=== PATIENT | female | born 1945 | race Caucasian/White ===

== ENCOUNTER 2024-02-26 12:49 | Outpatient (OUT) | payer MEDICARE, SELFPAY ==
--- NOTE | 2024-02-26 | XR_ITS ---
The [address] [address] Patient Name: REHAN GREGORY MRN: [id number] date: 1945 Sex: F Assigned Patient Location: [facility] Current Patient Location: [facility] Accession/Order Number: [id number] Exam Date: 02/26/2024 13:20 Report Date: 02/26/2024 14:57 At the request of: ROBE DÍAZ Procedure: XR DEXA axial skeleton EXAMINATION: XR DEXA axial skeleton, 02/26/2024 1:20 PM EDT HISTORY: Screening for osteoporosis COMPARISON: 2013 TECHNIQUE: Dual-energy X-ray absorptiometry (DEXA) bone density study performed for the axial skeleton. HISTORY: Screening for osteoporosis FINDINGS: Bone mineral density AP spine L1-L4 measures 1.357 g/sq cm. T score 1.5. WHO classification: Normal. Lowest bone mineral densities the right femoral neck measuring 0.882 g/sq cm. T score -1.1. WHO classification: Osteopenia XR/XR DEXA axial skeleton IMPRESSION: Osteopenia. Moderate fracture risk Electronically authenticated by: JAYME BOWER Date: 02/26/2024 14:57
== END 2024-02-26 12:50 | disposition home or self-care (01) ==
LOC: RAD 12:55
PROVIDERS: PCP Internal Medicine; Visit Provider Internal Medicine
DX: M81.0 Age-related osteoporosis without current pathological fracture (principal); M85.88 Other specified disorders of bone density and structure, other site
CPT/HCPCS: 77080

== ENCOUNTER 2024-02-26 12:58 | Outpatient (OUT) | payer MEDICARE, SELFPAY ==
--- NOTE | 2024-02-26 | MM_ITS ---
Patient Name: REHAN GREGORY MR#: [id number] : 1945 Exam Date: 02/26/2024 Ordering Doctor: DR. ERIKA HERNANDEZ M.D. RADIOLOGY REPORT PROCEDURE: MM TOMOSYNTHESIS SCREENING BI COMPARISON: [facility] 3D VAN CAD, 02/24/2023. [facility] DI[facility]NOSTIC 3D VAN CAD, 02/20/2022. INDICATIONS: Screening for malignant neoplasm Calculator Name NCI Breast Cancer Risk Assessment Tool 5 Year Breast Cancer Risk 2.60% Lifetime Breast Cancer Risk 4.30% Personal Breast Cancer No Personal Ovarian Cancer No Treatments None Family Cancers None LOCATION: [facility] BREAST COMPOSITION: There are scattered areas of fibroglandular density. FINDINGS: DIAGNOSTIC CATEGORY 2--BENIGN FINDING. NO CHANGE FROM COMPARISON. Scattered benign-appearing nodules are present. Scattered benign-appearing calcifications are present. Scattered benign-appearing lymph nodes are present. RIGHT BREAST: No significant suspicious finding. LEFT BREAST: Asymmetrically small, stable. Architectural distortion deep to a linear scar marker 6 o'clock breast, unchanged. RECOMMENDATIONS: ROUTINE MAMMOGRAM AND CLINICAL EVALUATION IN 12 MONTHS. PLEASE NOTE: A NORMAL MAMMOGRAM DOES NOT EXCLUDE THE POSSIBILITY OF BREAST CANCER. A CLINICALLY SUSPICIOUS PALPABLE LUMP SHOULD BE BIOPSIED. Dictated by: Jass Paul MD on 02/26/2024 at 15:15 Approved by: Jass Paul MD on 02/26/2024 at 15:17
== END 2024-02-26 12:59 | disposition home or self-care (01) ==
LOC: MAMMO 12:59
PROVIDERS: PCP Internal Medicine; Visit Provider Internal Medicine Hematology & Oncology
DX: M81.0 Age-related osteoporosis without current pathological fracture (principal); M85.88 Other specified disorders of bone density and structure, other site; D05.12 Intraductal carcinoma in situ of left breast; Z12.31 Encounter for screening mammogram for malignant neoplasm of breast
CPT/HCPCS: 77063; 77067; 77080